=== PATIENT | female | born 1990 | race Caucasian/White ===

== ENCOUNTER → 2017-07-17 | Outpatient (REF) | payer OTHER ==
[2017-07-17 12:38] LABS: BASO % 1.2 % (0.0-1.0); EOS # 0.1 10^3/uL (0.0-0.50); EOS % 2.9 % (0.0-3.0); HEMATOCRIT 40.7 % (36.0-47.0); HEMOGLOBIN 13.6 g/dl (12.0-16.0); LYMPH # 1.2 10^3/uL (1.5-6.5); LYMPH % 35.4 % (24.0-44.0); MEAN CORPUSCULAR HEMOGLOBIN 27.6 pg (27.0-33.0); MEAN CORPUSCULAR HGB CONC 33.4 g/dl (32.0-36.5); MEAN CORPUSCULAR VOLUME 82.6 fl (80.0-96.0); MONO # 0.4 10^3/uL (0.0-0.8); MONO % 10.8 % (0.0-5.0); NEUTROPHILS # 1.7 10^3/uL (1.8-7.7); NEUTROPHILS % 49.7 % (36.0-66.0); PLATELET COUNT, AUTOMATED 229 10^3/uL (150-450); RED BLOOD COUNT 4.93 10^6/uL (4.00-5.40); RED CELL DISTRIBUTION WIDTH 13.2 % (11.5-14.5); WHITE BLOOD COUNT 3.4 10^3/uL (4.0-10.0)
[2017-07-17 13:00] LABS: ESTRADIOL 62.3 PG/ML; LUTEINIZING HORMONE 16.9 mIU/mL; PROLACTIN 12.6 NG/ML; TOTAL 25(OH) VITAMIN D 15.8 NG/ML (30.0-100.0)
[2017-07-17 13:01] LABS: FOLLICLE STIMULATING HORMONE 8.4 mIU/mL
[2017-07-17 13:10] LABS: ALBUMIN 4.3 GM/DL (3.2-5.2); ALBUMIN/GLOBULIN RATIO 1.26 (1.00-1.93); ALKALINE PHOSPHATASE 45 U/L (45-117); ALT/SGPT 12 U/L (12-78); ANION GAP 7 MEQ/L (8-16); AST/SGOT 15 U/L (7-37); BILIRUBIN,TOTAL 1.2 MG/DL (0.2-1.0); BLOOD UREA NITROGEN 11 MG/DL (7-18); CALCIUM LEVEL 8.9 MG/DL (8.5-10.1); CARBON DIOXIDE LEVEL 29 MEQ/L (21-32); CHLORIDE LEVEL 106 MEQ/L (98-107); GLOMERULAR FILTRATION RATE > 60.0 (>60); GLUCOSE, FASTING 89 MG/DL (70-100); POTASSIUM SERUM 4.4 MEQ/L (3.5-5.1); SODIUM LEVEL 142 MEQ/L (136-145); TOTAL PROTEIN 7.7 GM/DL (6.4-8.2)
== END ==
LOC: M SFHCPLAZ 08:40
DX: Z00.00 Encounter for general adult medical examination without abnormal findings (principal); N91.1 Secondary amenorrhea
CPT/HCPCS: 83001

== ENCOUNTER → 2017-08-20 | Outpatient (REF) | payer OTHER ==
[2017-08-20 14:45] LABS: CHLAMYDIA DNA AMPLIFICATION NEGATIVE (NEGATIVE); GC DNA AMPLIFICATION NEGATIVE (NEGATIVE)
== END ==
LOC: M SFHCPLAZ 12:34
DX: Z11.3 Encounter for screening for infections with a predominantly sexual mode of transmission (principal)

== ENCOUNTER → 2017-08-20 | Outpatient (REF) | payer OTHER | LOC: M SFHCWAGY 09:56 | DX: Z12.4 Encounter for screening for malignant neoplasm of cervix (principal) | CPT/HCPCS: 88142 ==

== ENCOUNTER → 2017-11-13 | Outpatient (REF) | payer OTHER ==
[2017-11-13 13:28] LABS: HEMATOCRIT 36.1 % (36.0-47.0); HEMOGLOBIN 12.6 g/dl (12.0-15.5); MEAN CORPUSCULAR HGB CONC 34.9 g/dl (32.0-36.5); PLATELET COUNT, AUTOMATED 189 10^3/uL (150-450); RED BLOOD COUNT 4.35 10^6/uL (4.00-5.40); RED CELL DISTRIBUTION WIDTH 13.5 % (11.5-14.5); WHITE BLOOD COUNT 6.9 10^3/uL (4.0-10.0)
[2017-11-13 14:34] LABS: HCG, SERUM QUANTITATIVE 76282 MIU/ML
[2017-11-14 11:22] LABS: RUBELLA IgG QUALITATIVE IMMUNE (IMMUNE)
[2017-11-14 11:41] LABS: HBsAg Prenatal NEGATIVE (NEGATIVE)
[2017-11-14 11:53] LABS: HEPATITIS C VIRUS ABY INDEX < 0.0 INDEX (<0.8)
[2017-11-14 11:53] LABS: HIV 1&2 SCREEN CENTAUR NEGATIVE (NEGATIVE)
== END ==
LOC: M LAB REF 13:12
DX: O36.80X0 Pregnancy with inconclusive fetal viability, not applicable or unspecified (principal); Z3A.00 Weeks of gestation of pregnancy not specified

== ENCOUNTER → 2018-02-26 | Outpatient (REF) | payer OTHER ==
[2018-02-26 15:48] LABS: CHLAMYDIA DNA AMPLIFICATION NEGATIVE (NEGATIVE); GC DNA AMPLIFICATION NEGATIVE (NEGATIVE)
== END ==
LOC: M LAB REF 13:37
DX: Z34.82 Encounter for supervision of other normal pregnancy, second trimester (principal)

== ENCOUNTER → 2018-03-27 | Outpatient (CLI) | payer OTHER ==
[2018-03-30 08:47] LABS: GLUCOSE CHALLENGE TEST 1 HOUR 147 MG/DL (LESS THAN 140)
== END ==
LOC: M LAB 11:49
DX: Z34.82 Encounter for supervision of other normal pregnancy, second trimester (principal); Z3A.00 Weeks of gestation of pregnancy not specified
CPT/HCPCS: 82950

== ENCOUNTER → 2018-04-03 | Outpatient (CLI) | payer OTHER ==
[2018-04-03 10:12] LABS: GLUCOSE, FASTING 79 MG/DL (LESS THAN 95)
[2018-04-03 10:41] LABS: 1 HR GLUCOSE 151 MG/DL (LESS THAN 180)
[2018-04-03 15:29] LABS: 3 HR GLUCOSE 141 MG/DL (LESS THAN 140)
[2018-04-03 16:32] LABS: 2 HR GLUCOSE 151 MG/DL (LESS THAN 155)
== END ==
LOC: M LAB 08:21
DX: R73.02 Impaired glucose tolerance (oral) (principal)
CPT/HCPCS: 82951

== ENCOUNTER → 2018-05-14 | Outpatient (REF) | payer OTHER | LOC: M LAB REF 13:51 | DX: Z34.83 Encounter for supervision of other normal pregnancy, third trimester (principal); Z36.85 Encounter for antenatal screening for Streptococcus B | CPT/HCPCS: 87081 ==

== ENCOUNTER 2018-05-25 18:13 | Outpatient (CLI) | payer OTHER ==
[~2018-05-25] VITALS: Ht 157.5 cm; Wt 67.1 kg
[2018-05-25 18:26] VITALS: BP 117/76
[2018-05-25 20:30] VITALS: BP 111/70
--- NOTE | 2018-05-25 21:04 | IPN ---
DATE: 05/25/2018 Rosanna is a 27-year-old 2, para 1-0-0-1 at 38-1/7 weeks gestation with an estimated date of confinement (EDC) of 06/07/2018, based on last menstrual period and confirmed by first trimester ultrasound. She presents to labor and delivery today with a report of onset of pelvic pressure and irregular contractions. She denies vaginal bleeding and leakage of fluid. The fetus has been active. care was initiated at [facility] in the second trimester. course has been uncomplicated. OBSTETRIC HISTORY: March 2013, 39 week gestation, spontaneous vaginal delivery, 7 pounds, 6 ounces female. OBSTETRIC LABORATORY: A+, antibody screen negative. Pap normal, rubella immune, VDRL nonreactive. Urine culture no growth. Hepatitis B surface antigen negative, human immunodeficiency virus (HIV) negative, hepatitis C nonreactive. Gonorrhea and chlamydia negative. Gestational diabetic screening elevated at 147 with a 3-hour glucose tolerance test with a 1-hour of 151, 2-hour 151, 3-hour 141. Group B streptococcus (GBS) is negative. PAST MEDICAL HISTORY: Negative. SURGERIES: The left toe surgery. FAMILY HISTORY: Diabetes type 2. SOCIAL HISTORY: The patient is single. She is unemployed. She denies smoking, alcohol use and drug use. She denies any history of sexually transmitted infections and denies history of abuse physical, sexual or emotional allergies. ALLERGIES: No known drug allergies. CURRENT MEDICATIONS: None. OBJECTIVE: Temperature 99.2, pulse 133, blood pressure (BP) 117/76. She is alert and oriented x3. She is in no apparent this distress, smiling and talkative, texting on her phone and talking on her phone. heart rate is 140 with moderate variability, positive accelerations, no decelerations. Contractions are mild every 4 to 6 minutes. Abdomen is gravid, cephalic presentation. Sterile vaginal exam: 1-2 cm, 50% effaced, scant bloody show with exam. She was rechecked approximately 70 minutes following the initial evaluation. Cervix was unchanged. heart rate is still category 1. ASSESSMENT: Intrauterine at 38-1/7 weeks. heart rate category 1, not in active labor. PLAN: Discharge the patient to home. I did review signs symptoms of active labor, kick counts and danger signs to report. I reviewed access to care. I did discuss with the patient that I am unable to augment any contraction pattern she is having as she is less than 39 weeks gestation. The patient understands. She will be discharged home and agrees with the plan.
== END 2018-05-25 20:40 | disposition home or self-care (01) ==
LOC: M LDO 18:13
PROVIDERS: ATTEND Advanced Practice Midwife
DX: O47.9 False labor, unspecified (principal); Z3A.38 38 weeks gestation of pregnancy

== ENCOUNTER 2018-05-30 14:10 | Outpatient (CLI) | payer OTHER | END 2018-05-30 16:35 | disposition home or self-care (01) | LOC: M LDO 14:10 | DX: O47.9 False labor, unspecified (principal); Z3A.38 38 weeks gestation of pregnancy ==

== ENCOUNTER 2018-06-05 12:28 | Inpatient (IN) | payer OTHER ==
[~2018-06-05] VITALS: Ht 157.5 cm; Wt 67.3 kg
[2018-06-05] VITALS (27 sets, daily range): BP systolic 95–140; BP diastolic 55–94
[2018-06-05] MEDS ORDERED: LR 1,000 ML IV SCH (12:45)
[2018-06-05] MEDS ORDERED: LACTATED RINGER'S 1000 ML IV ONE (12:45)
[2018-06-05 13:37] LABS: HEMATOCRIT 31.3 % (36.0-47.0); HEMOGLOBIN 10.3 g/dl (12.0-15.5); MEAN CORPUSCULAR HGB CONC 32.9 g/dl (32.0-36.5); PLATELET COUNT, AUTOMATED 233 10^3/uL (150-450); RED BLOOD COUNT 4.12 10^6/uL (4.00-5.40); WHITE BLOOD COUNT 8.6 10^3/uL (4.0-10.0)
[2018-06-05] MEDS ORDERED: OXYTOCIN 30 UNITS IN 0.9% NaCl 500ML IV BAG (J2590) As Ordered ONE (13:54)
[2018-06-05] MEDS ORDERED: FENTANYL 2MCG/ML ROPIVACAINE 0.2% IN 0.9% NACL 100ML IVBAG As Ordered ONE (14:07)
[2018-06-05] MEDS ORDERED: OXYTOCIN DRIP 30 UNITS in APPROPRIATE DILUENT 1 EA IV SCH ×2 (14:15→18:47)
[2018-06-05] MEDS ORDERED: FENTANYL/ROPIVACAINE/NACL BAG 100 ML EPIDURAL SCH (16:00)
[2018-06-05] MEDS ORDERED: diphenhydrAMINE INJ 50MG/ML VIAL (J1200) IV PRN (16:00)
[2018-06-05] MEDS ORDERED: EPIDURAL COMMENT XX SCH (16:00)
[2018-06-05] MEDS ORDERED: REFRIGERATOR IV KEYS XX PRN (16:00)
[2018-06-05] MEDS ORDERED: ePHEDrine SULFATE 25 MG/5 ML(5MG/ML) SYRINGE IV PRN (16:00)
[2018-06-05] MEDS ORDERED: EPIDURAL/PCA KEYS XX PRN (16:00)
[2018-06-05] MEDS ORDERED: ONDANSETRON 4MG/2ML VIAL (J2405) IV PRN (16:00)
[2018-06-05] MEDS ORDERED: NALOXONE INJ 0.4 MG/1 ML VIAL (J2310) IV PRN (16:00)
[2018-06-05] MEDS ORDERED: RHOGAM 300 MCG (1500 IU) INJ (J2790) IM SCH (19:00)
[2018-06-05] MEDS ORDERED: DIBUCAINE 1% OINTMENT 30GM TOP PRN (19:00)
[2018-06-05] MEDS ORDERED: MEASLES,MUMPS,RUBELLA VACCINE INJ (MMR-II) (90707) SC SCH (19:00)
[2018-06-05] MEDS ORDERED: METHYLERGONOVINE MALEATE 0.2 MG TAB PO PRN (19:00)
[2018-06-05] MEDS ORDERED: DOCUSATE SODIUM 100 MG CAP PO PRN (19:00)
[2018-06-05] MEDS ORDERED: IBUPROFEN 800 MG TAB PO PRN (19:00)
[2018-06-05] MEDS ORDERED: ACETAMINOPHEN 500 MG TAB PO PRN (19:00)
[2018-06-05 19:10] LABS: CORD GAS ABE A -5.3; CORD GAS HCO3 A 23.6 MEQ/L; CORD GAS O2 SAT A 21.5 %; CORD GAS PCO2 A 59.8 mmHg; CORD GAS PH A 7.214 UNITS; CORD GAS PO2 A 16.1 mmHg; CORD GAS SBC A 18.4 MEQ/L; CORD GAS TCO2 A 25.4 MEQ/L
[2018-06-05 19:13] LABS: CORD GAS HCO3 V 21.3 MEQ/L; CORD GAS O2 SAT V 42.7 %; CORD GAS PH V 7.264 UNITS; CORD GAS PO2 V 22.6 mmHg; CORD GAS SBC V 18.4 MEQ/L; CORD GAS TCO2 V 22.7 MEQ/L
[2018-06-06 06:03] VITALS: BP 100/53
[2018-06-06] MEDS ORDERED: PRENATAL VITAMINS CHEWABLE TABLET PO SCH (09:00)
--- NOTE | 2018-06-06 10:46 | HPE ---
DATE OF ADMISSION: 06/05/2018 Rosanna is a 27-year-old female 2, para 1-0-0-1 with an EDC of 06/07/2018, EGA 39-5/7 weeks gestation who presented to the office with complaints of contractions. Upon evaluation she was found to be in labor. At this point a decision was made for admission. Her record reviewed which was essentially unremarkable. lab blood type is A positive, rubella immune, hepatitis negative, HIV negative, GC and chlamydia negative. Her Group B streptococcus (GBS) is negative. 1-hour sugar testing was abnormal, her 3 hours was within normal limits. PAST MEDICAL HISTORY: Unremarkable. PAST SURGICAL HISTORY: Left toe surgery. SOCIAL HISTORY: She denies any alcohol, drugs or cigarette smoking. REVIEW OF SYSTEMS: Unremarkable. FAMILY HISTORY: Significant for type 2 diet diabetes. MEDICATIONS: vitamins. ALLERGIES: No known drug allergies. PHYSICAL EXAMINATION: Normal-appearing female in no acute distress. Abdomen: Soft, nontender, nondistended. Extremities: No clubbing, cyanosis or edema. Vaginal exam: 3-4 cm 80%, fetus at -2 station in vertex position. Tracing reviewed, category one tracing, contractions every 3-4 minutes. ASSESSMENT: Intrauterine at 39+ weeks gestation in active labor. PLAN: Admit to labor and delivery. Routine labs sent. Pain management discussed. The patient opted for an epidural. We will continue to monitor. Anticipate delivery.
--- NOTE | 2018-06-06 12:52 | DN ---
DATE OF DELIVERY: 06/05/2018 Rosanna is a 27-year-old female 2, para 1-0-0-1 who was admitted at 39-5/7 weeks gestation in labor. She progressed to fully dilated after artificial rupture of membranes and Pitocin augmentation, delivered a live male infant in right occiput anterior position with a tight nuchal cord. scores of 8 and 9. weight 7 pounds 6 ounces. Placenta delivered spontaneously intact. Three-vessel cord. Perineum, vagina, and cervix inspected. No laceration noted. Estimated blood loss 200 mL. Both mother and baby in stable condition.
[2018-06-06] MEDS ORDERED: MAPA500T17 PO (15:58)
[2018-06-06] MEDS ORDERED: IBUP-1114 PO (15:59)
[2018-06-06] MEDS ORDERED: INFLUENZA QUADRIVALENT PF VACCINE 0.5ML SYRINGE (90686) IM ONE (16:00)
[2018-06-06] MEDS ORDERED: PRENTAB9 PO (16:00)
[2018-06-06 18:01] VITALS: BP 118/81
== END 2018-06-06 19:37 | disposition home or self-care (01) | DRG 560 ==
LOC: M LDI 12:28 → M OBS 21:15
PROVIDERS: ADMIT Obstetrics & Gynecology; ATTEND Obstetrics & Gynecology
PROC: 10E0XZZ Delivery of Products of Conception, External Approach (ICD-10-PCS; principal; 2018-06-05)
PROC: 10907ZC Drainage of Amniotic Fluid, Therapeutic from Products of Conception, Via Natural or Artificial Opening (ICD-10-PCS; 2018-06-05)
DX: O80 Encounter for full-term uncomplicated delivery (principal); Z37.0 Single live birth; Z3A.39 39 weeks gestation of pregnancy

== ENCOUNTER 2018-07-03 10:28 | Emergency (ER) | payer OTHER ==
[~2018-07-03] VITALS: Ht 157.5 cm; Wt 60.0 kg
[~2018-07-03 10:28] MED LIST: IBUP-1114 PO; MAPA500T2 PO; PRENTAB9 PO
[2018-07-03 11:07] LABS: BASO % 0.9 % (0.0-1.0); EOS # 0.2 10^3/uL (0.0-0.50); EOS % 3.8 % (0.0-3.0); HEMATOCRIT 39.2 % (36.0-47.0); HEMOGLOBIN 12.1 g/dl (12.0-15.5); MEAN CORPUSCULAR HEMOGLOBIN 23.9 pg (27.0-33.0); MEAN CORPUSCULAR HGB CONC 30.9 g/dl (32.0-36.5); MEAN CORPUSCULAR VOLUME 77.5 fl (80.0-96.0); MONO # 0.5 10^3/uL (0.0-0.8); MONO % 9.8 % (0.0-5.0); NEUTROPHILS % 63.3 % (36.0-66.0); PLATELET COUNT, AUTOMATED 229 10^3/uL (150-450); RED BLOOD COUNT 5.06 10^6/uL (4.00-5.40); WHITE BLOOD COUNT 4.7 10^3/uL (4.0-10.0)
[2018-07-03 11:17] LABS: INR 1.02; PROTHROMBIN TIME 13.5 SECONDS (12.1-14.4)
[2018-07-03 11:18] LABS: PARTIAL THROMBOPLASTIN TIME 26.2 SECONDS (25.4-37.6)
[2018-07-03 11:29] LABS: BLOOD UREA NITROGEN 10 MG/DL (7-18); CARBON DIOXIDE LEVEL 26 MEQ/L (21-32); CHLORIDE LEVEL 108 MEQ/L (98-107); CREATININE FOR GFR 0.72 MG/DL (0.55-1.30); GLOMERULAR FILTRATION RATE > 60.0 (>60); GLUCOSE, FASTING 101 MG/DL (70-100); POTASSIUM SERUM 3.7 MEQ/L (3.5-5.1); SODIUM LEVEL 141 MEQ/L (136-145)
[2018-07-03 11:48] LABS: HCG, SERUM QUANTITATIVE < 1.0 MIU/ML
[2018-07-03 12:54] VITALS: BP 107/71
== END 2018-07-03 12:57 | disposition home or self-care (01) ==
LOC: M ED 10:28
DX: N93.8 Other specified abnormal uterine and vaginal bleeding (principal)

== ENCOUNTER 2018-07-14 17:51 | Emergency (ER) | payer OTHER ==
[~2018-07-14] VITALS: Ht 157.5 cm; Wt 59.1 kg
[2018-07-14 17:52] VITALS: BP 113/72
[2018-07-14] MEDS ORDERED: AFRI0.0511 (19:49)
[2018-07-14] MEDS ORDERED: BENZ200C70 PO (19:49)
[2018-07-14] MEDS ORDERED: MUCI600T37 PO (19:49)
== END 2018-07-14 19:55 | disposition home or self-care (01) ==
LOC: M ED 17:51
DX: J06.9 Acute upper respiratory infection, unspecified (principal)

== ENCOUNTER 2018-12-05 08:39 | Emergency (ER) | payer OTHER ==
[~2018-12-05] VITALS: Ht 157.5 cm; Wt 61.4 kg
[~2018-12-05 08:39] MED LIST changes: +AFRI0.0511; +BENZ200C70 PO; +MUCI600T37 PO
[2018-12-05] MEDS ORDERED: NS 1,000 ML IV ONE (09:15)
[2018-12-05 09:35] LABS: BASO % 0.4 % (0.0-1.0); EOS % 0.4 % (0.0-3.0); HEMATOCRIT 37.5 % (36.0-47.0); LYMPH # 0.7 10^3/uL (1.5-6.5); LYMPH % 9.3 % (24.0-44.0); MEAN CORPUSCULAR HEMOGLOBIN 25.3 pg (27.0-33.0); MEAN CORPUSCULAR VOLUME 78.9 fl (80.0-96.0); MONO # 0.7 10^3/uL (0.0-0.8); MONO % 9.3 % (0.0-5.0); NEUTROPHILS # 5.9 10^3/uL (1.8-7.7); NEUTROPHILS % 80.3 % (36.0-66.0); PLATELET COUNT, AUTOMATED 237 10^3/uL (150-450); RED BLOOD COUNT 4.75 10^6/uL (4.00-5.40); WHITE BLOOD COUNT 7.4 10^3/uL (4.0-10.0)
[2018-12-05 10:06] LABS: ALBUMIN 3.8 GM/DL (3.2-5.2); ALT/SGPT 17 U/L (12-78); BILIRUBIN,DIRECT 0.3 MG/DL (0.0-0.2); BILIRUBIN,TOTAL 1.4 MG/DL (0.2-1.0); BLOOD UREA NITROGEN 8 MG/DL (7-18); CALCIUM LEVEL 8.6 MG/DL (8.5-10.1); CARBON DIOXIDE LEVEL 25 MEQ/L (21-32); CHLORIDE LEVEL 108 MEQ/L (98-107); CREATININE FOR GFR 0.76 MG/DL (0.55-1.30); GLOMERULAR FILTRATION RATE > 60.0 (>60); GLUCOSE, FASTING 98 MG/DL (70-100); LIPASE 62 U/L (73-393); POTASSIUM SERUM 3.6 MEQ/L (3.5-5.1); SODIUM LEVEL 140 MEQ/L (136-145); TOTAL PROTEIN 7.4 GM/DL (6.4-8.2)
[2018-12-05] MEDS ORDERED: CIPR-249 PO (10:58)
[2018-12-05] MEDS ORDERED: cefTRIAXone SOD 1 GM in D5W MINI-BAG PLUS 50 ML IV ONE (11:00)
[2018-12-05 11:37] VITALS: BP 129/77
--- NOTE | 2018-12-05 15:02 | REP ---
Clinical: Right flank pain. Technique: Axial noncontrast images from the lung bases to the pubic symphysis with coronal and sagittal re-formations. Findings: There is mild edematous enlargement to the right kidney with a subtle periureteral stranding and mild ureteral prominence without obvious nephrolithiasis or obstructing ureteral calculus. Calcifications in the pelvis likely represent phleboliths although subtle distal ureteral calculus cannot definitively be excluded. Correlation with urinalysis is recommended along with ultrasound if necessary. The left kidney/ureter appears normal. The bladder is unremarkable. Liver, spleen, pancreas, gallbladder, and bilateral adrenal glands are normal for noncontrast evaluation. The enteric system is without obstruction or acute inflammatory process. A normal appendix is identified in the right lower quadrant. Pelvis demonstrates normal bladder and uterus with IUD in satisfactory position along with bilateral adnexal cysts likely physiologic and related to menstrual cycle. No pelvic fluid or ascites. No free air. No obvious adenopathy. Abdominal aorta without aneurysm. Musculoskeletal structures without focal osseous abnormality. Impression: 1. Mild edematous enlargement to the right kidney with subtle periureteral stranding, but no obvious intrarenal or obstructing ureteral calculi appreciated. Correlation with urinalysis and ultrasound may be warranted to exclude pyelonephritis to evaluate for ureteral jet. Left kidney/ureter and bladder appear normal. 2. Normal appendix. 3. No further acute abdominopelvic pathology appreciated. No ascites. No focal inflammatory stranding. No adenopathy. Electronically Signed by Shant Millard MD 12/05/2018 10:05 A
== END 2018-12-05 11:41 | disposition home or self-care (01) ==
LOC: M ED 08:39
DX: N10 Acute pyelonephritis (principal); R11.2 Nausea with vomiting, unspecified; E80.7 Disorder of bilirubin metabolism, unspecified; Z97.5 Presence of (intrauterine) contraceptive device
CPT/HCPCS: 74176; 80048; 80076; 81001; 83690; 84702; 85025; 87088; 87186; 96365; 99284; J0696

== ENCOUNTER → 2018-12-09 | Outpatient (REF) | payer OTHER ==
[~2018-12-09] MED LIST changes: +CIPR-249 PO
[2018-12-09 14:03] LABS: HEMATOCRIT 35.1 % (36.0-47.0); HEMOGLOBIN 11.2 g/dl (12.0-15.5); MEAN CORPUSCULAR HEMOGLOBIN 25.5 pg (27.0-33.0); MEAN CORPUSCULAR HGB CONC 31.9 g/dl (32.0-36.5); MEAN CORPUSCULAR VOLUME 79.8 fl (80.0-96.0); PLATELET COUNT, AUTOMATED 268 10^3/uL (150-450); WHITE BLOOD COUNT 3.2 10^3/uL (4.0-10.0)
[2018-12-09 14:12] LABS: FREE T4 1.14 NG/DL (0.76-1.46); THYROID STIMULATING HORMONE 1.33 uIU/ML (0.358-3.740)
[2018-12-09 14:14] LABS: FOLLICLE STIMULATING HORMONE 5.9 mIU/mL; LUTEINIZING HORMONE 12.4 mIU/mL
== END ==
LOC: M LAB REF 12:45
PROVIDERS: ATTEND Obstetrics & Gynecology
DX: N92.1 Excessive and frequent menstruation with irregular cycle (principal)

== ENCOUNTER → 2019-05-25 | Outpatient (CLI) | payer OTHER ==
--- NOTE | 2019-05-25 17:14 | REP ---
Four views left foot: 05/25/2019. Indication: New left foot pain. Comparison: None. Findings: There is no acute fracture, subluxation or dislocation. No focal soft tissue abnormalities are detected. There are no lytic or blastic lesions within the visualized osseous structures. Impression: No acute left foot osseous injury. Electronically Signed by Estuardo Zapata DO 05/25/2019 05:05 P
== END ==
LOC: M RAD 16:36
PROVIDERS: ATTEND Nurse Practitioner Family
DX: M79.672 Pain in left foot (principal)

== ENCOUNTER → 2019-07-23 | Outpatient (CLI) | payer OTHER ==
--- NOTE | 2019-07-23 09:46 | REP ---
MRI left foot without contrast: History: Pain in the left foot. Evaluate first MTP joint. Surgery 2 years ago. Salomon in the left foot 2015. Comparison radiographs May 25, 2019. Technique: Axial, coronal, and sagittal imaging planes were utilized. T1 and T2-weighted scans were included with and without fat saturation. Findings: I do not see evidence of any metallic hardware in place. Cortical and medullary bone signal intensity is normal at the ankle and foot. The patient is status post bunion repair at the first MTP joint. There is a small spur at the medial aspect of the base of the proximal phalanx of the great toe and a tiny spur is seen at the lateral articular margin of the distal end of the first metatarsal consistent with early osteoarthritis. There is mild swelling in the medial collateral ligament at the MTP joint. Sesamoid bones are unremarkable. No tendinopathy is appreciated. No juxtaarticular fluid or interarticular fluid is seen. No mass lesion is observed. Plantar fascia is smooth. There is no evidence to suggest tarsal coalition. Achilles tendon is unremarkable. No other evidence of tendinopathy is appreciated. Impression: Mild osteoarthritic changes at the first MTP joint. Status post bunion repair. Otherwise negative. Electronically Signed by Miguel Fagan MD 07/23/2019 12:03 P
== END ==
LOC: M PLARAD 07:24
PROVIDERS: ATTEND Orthopaedic Surgery
DX: M79.672 Pain in left foot (principal); M19.072 Primary osteoarthritis, left ankle and foot

== ENCOUNTER → 2019-10-20 | Outpatient (REF) | payer OTHER ==
[2019-10-20 16:17] LABS: HEMOGLOBIN A1c 5.7 %
== END ==
LOC: M SFHCPLAZ 13:20
PROVIDERS: ATTEND Family Medicine
DX: Z13.1 Encounter for screening for diabetes mellitus (principal)

== ENCOUNTER → 2019-11-29 | Outpatient (CLI) | payer OTHER ==
[~2019-11-29] MED LIST changes: +ACET-897 PO; +DEPO150I IM; +MOTR200T44 PO; +NEUR100C PO
== END ==
LOC: M LABSMTC 11:31
PROVIDERS: ATTEND Anesthesiology
DX: Z03.818 Encounter for observation for suspected exposure to other biological agents ruled out (principal); Z11.59 Encounter for screening for other viral diseases
CPT/HCPCS: C9803; U0003

== ENCOUNTER 2019-12-02 14:45 | Day surgery (SDC) | payer OTHER ==
[~2019-12-02] VITALS: Ht 157.5 cm; Wt 78.4 kg
[~2019-12-02 14:45] MED LIST changes: +ACETAMINOPHEN 1000MG 100ML IV BTL (OFIRMEV) (J0131 PER 10MG) As Ordered ONE; +LIDOCAINE 2% 100MG/5ML SDV (FOR ANES.) As Ordered ONE; +LR 1,000 ML IV ONE; +MIDAZOLAM INJ 2MG/2ML VIAL (J2250 PER 1MG) As Ordered ONE; +ONDANSETRON 4MG/2ML VIAL As Ordered ONE; +PHENYLephrine HCL 500 MCG/5 ML (100MCG/ML) SYRINGE (J2370) As Ordered ONE; +ROCURONIUM BROMIDE 50 MG/5 ML VIAL As Ordered ONE; +SUGAMMADEX SODIUM 500 MG/5 ML VIAL (BRIDION) As Ordered ONE; +ceFAZolin SOD 2 GM in IV 1 EA IV ONE; +dexameTHASONE 4 MG/ML 1ML VIAL (J1100 PER 1MG) As Ordered ONE; +ePHEDrine SULFATE 25 MG/5 ML(5MG/ML) SYRINGE As Ordered ONE; +fentaNYL 250 MCG/5 ML INJECTION (J3010) As Ordered ONE; +propofoL 200 MG/20 ML VIAL As Ordered ONE
[2019-12-02] MEDS ORDERED: BUPIVACAINE HCL 0.5% 30 ML VIAL As Ordered ONE (16:59)
[2019-12-02] MEDS: PERCOCET 5MG/325MG TAB PO PRN ×2 (18:12→18:59)
[2019-12-02] MEDS: fentaNYL 100 MCG/2 ML INJECTION (J3010) IV PRN ×4 (18:12→18:34)
[2019-12-02] MEDS ORDERED: fentaNYL 100 MCG/2 ML INJECTION (J3010) As Ordered ONE (18:12)
[2019-12-02] MEDS ORDERED: PERCOCET 5MG/325MG TAB As Ordered ONE (18:12)
[2019-12-02] MEDS ORDERED: MEPERIDINE INJ 25 MG/ML VIAL (J2175) IV PRN (18:15)
[2019-12-02] MEDS ORDERED: LR 1,000 ML IV SCH ×2 (18:15)
[2019-12-02] MEDS ORDERED: METOCLOPRAMIDE INJ 10MG/2ML VIAL (J2765 PER 1) IV PRN (18:15)
[2019-12-02] MEDS ORDERED: ONDANSETRON 4MG/2ML VIAL IV PRN (18:15)
[2019-12-02 19:20] VITALS: BP 125/97
--- NOTE | 2019-12-07 22:27 | RO ---
DATE OF PROCEDURE: 12/02/2019 PREOPERATIVE DIAGNOSIS: 1. Left knee possible medial meniscus tear. POSTOPERATIVE DIAGNOSIS: 1. Left knee nondisplaced versus interstitial medial meniscus tear. 2. Left knee medial synovial plica. PROCEDURE: 1. Left knee arthroscopy with trephination of medial meniscus. 2. Left knee arthroscopic synovectomy, resection of medial synovial plica. SURGEON: Dr. Van Smith SPRAY GUNNER: BRAEDEN Clay ANESTHESIA: General. IV FLUIDS: Lactated Ringer's. ESTIMATED BLOOD LOSS: 1 mL. IMPLANTS: None. CLOSURE: Nylon. DESCRIPTION OF PROCEDURE: The patient was identified in the preoperative holding area. The left leg was marked by myself. She was brought to the operating room, placed supine on a well-padded operating room (OR) table. General anesthesia induced. Exam under anesthesia revealed range of motion from 0 to 140 degrees, stable to varus and valgus stress, grade 1A Keke, grade 1 posterior drawer. A well-padded tourniquet was applied to the left side. The left leg was then prepped and draped in a normal sterile fashion from the toes up to the tourniquet. She received appropriate IV antibiotics within 1 hour of incision. Time-out was performed per hospital protocol. The left leg was exsanguinated with an Esmarch bandage, the tourniquet inflated to 275 mmHg. The knee was insufflated with lactated Ringer's. A standard anterolateral portal made with 11-blade. 30-degree arthroscope introduced into the joint, and a diagnostic arthroscopy was carried out. There was no chondromalacia in the patellofemoral joint. No loose bodies. There was a large medial synovial plica. Medial compartment was entered where there were no loose bodies, and there was no significant chondromalacia. No obvious medial meniscus tears. The anterior cruciate ligament (ACL) appeared intact and unremarkable. The leg was brought to the figure-four position where there were no loose bodies in the lateral compartment. The lateral meniscus was intact and no chondromalacia. A medial portal was created under direct visualization, and the shaver was used to resect the medial synovial plica. On probing the medial meniscus, the root and posterior horn were stable. The undersurface of the medial meniscus at the body had what appeared to be either a healed undersurface tear or an interstitial tear. There is nothing unstable there. There was nothing to resect, but there was hyperemia in a linear fashion in the undersurface. That corresponded to the area of pathology on an MRI and area of maximal tenderness on exam. At this point, I felt that a medial meniscus repair was excessive and inappropriate. However, this was a good opportunity for a trephination of her medial meniscus to increase the blood flow. I, therefore, used an 18-gauge spinal needle and percutaneously trephinated the inferior leaflet of the body of medial meniscus four times. The meniscus was reprobed and deemed to be stable. The knee was irrigated and drained. Portals were closed with nylon suture. We then injected 30 mL of 0.50% Marcaine without epinephrine at the portals and into the joint. Tourniquet was let down with excellent reperfusion. Again, portals were closed with nylon suture. Bulky sterile dressing applied. All counts times two. Complications: None. She was then extubated and transferred to the post-anesthesia care unit (PACU) in stable condition.
== END 2019-12-02 19:50 | disposition home or self-care (01) ==
LOC: M SDC 14:45
PROVIDERS: ATTEND Orthopaedic Surgery
DX: S83.242A Other tear of medial meniscus, current injury, left knee, initial encounter (principal); X58.XXXA Exposure to other specified factors, initial encounter; M67.52 Plica syndrome, left knee; Y92.89 Other specified places as the place of occurrence of the external cause; Y93.9 Activity, unspecified; Y99.9 Unspecified external cause status; Z79.899 Other long term (current) drug therapy
CPT/HCPCS: 29876; 29999; 81025; J0131; J0690; J1100; J2250; J2370; J2405; J3010

== ENCOUNTER → 2020-03-19 | Outpatient (CLI) | payer OTHER ==
[~2020-03-19] MED LIST changes: -ACETAMINOPHEN 1000MG 100ML IV BTL (OFIRMEV) (J0131 PER 10MG) As Ordered ONE; -LIDOCAINE 2% 100MG/5ML SDV (FOR ANES.) As Ordered ONE; -LR 1,000 ML IV ONE; -MIDAZOLAM INJ 2MG/2ML VIAL (J2250 PER 1MG) As Ordered ONE; -ONDANSETRON 4MG/2ML VIAL As Ordered ONE; -PHENYLephrine HCL 500 MCG/5 ML (100MCG/ML) SYRINGE (J2370) As Ordered ONE; -ROCURONIUM BROMIDE 50 MG/5 ML VIAL As Ordered ONE; -SUGAMMADEX SODIUM 500 MG/5 ML VIAL (BRIDION) As Ordered ONE; -ceFAZolin SOD 2 GM in IV 1 EA IV ONE; -dexameTHASONE 4 MG/ML 1ML VIAL (J1100 PER 1MG) As Ordered ONE; -ePHEDrine SULFATE 25 MG/5 ML(5MG/ML) SYRINGE As Ordered ONE; -fentaNYL 250 MCG/5 ML INJECTION (J3010) As Ordered ONE; -propofoL 200 MG/20 ML VIAL As Ordered ONE
== END ==
LOC: M LABSMTC 08:02
PROVIDERS: ATTEND Anesthesiology
DX: Z01.812 Encounter for preprocedural laboratory examination (principal); Z20.828 Contact with and (suspected) exposure to other viral communicable diseases
CPT/HCPCS: C9803; U0003

== ENCOUNTER 2020-03-24 06:22 | Day surgery (SDC) | payer OTHER ==
[~2020-03-24] VITALS: Ht 157.5 cm; Wt 78.5 kg
[2020-03-24] MEDS ORDERED: LR 1,000 ML IV ONE (07:00)
[2020-03-24] MEDS ORDERED: ACETAMINOPHEN *IV* 1,000 MG IV ONE ×2 (07:00)
[2020-03-24 07:05] LABS: HEMATOCRIT 41.4 % (36.0-47.0); HEMOGLOBIN 13.5 g/dl (12.0-15.5); MEAN CORPUSCULAR HEMOGLOBIN 30.5 pg (27.0-33.0); MEAN CORPUSCULAR HGB CONC 32.6 g/dl (32.0-36.5); MEAN CORPUSCULAR VOLUME 93.7 fl (80.0-96.0); PLATELET COUNT, AUTOMATED 184 10^3/uL (150-450); RED BLOOD COUNT 4.42 10^6/uL (4.00-5.40); WHITE BLOOD COUNT 2.7 10^3/uL (4.0-10.0)
[2020-03-24] MEDS ORDERED: propofoL 200 MG/20 ML VIAL As Ordered ONE (07:15)
[2020-03-24] MEDS ORDERED: LIDOCAINE 2% 100MG/5ML SDV (FOR ANES.) As Ordered ONE (07:15)
[2020-03-24] MEDS ORDERED: MIDAZOLAM INJ 2MG/2ML VIAL (J2250 PER 1MG) As Ordered ONE (07:15)
[2020-03-24] MEDS ORDERED: ROCURONIUM BROMIDE 50 MG/5 ML VIAL As Ordered ONE (07:15)
[2020-03-24] MEDS ORDERED: fentaNYL 100 MCG/2 ML INJECTION (J3010) As Ordered ONE ×3 (07:16→09:03)
[2020-03-24] MEDS ORDERED: ONDANSETRON 4MG/2ML VIAL As Ordered ONE (07:16)
[2020-03-24] MEDS ORDERED: dexameTHASONE 4 MG/ML 1ML VIAL (J1100 PER 1MG) As Ordered ONE (07:16)
[2020-03-24] MEDS ORDERED: METOCLOPRAMIDE INJ 10MG/2ML VIAL (J2765 PER 1) As Ordered ONE (07:16)
[2020-03-24] MEDS ORDERED: BUPIVACAINE/EPIN 0.5% 30 ML VIAL As Ordered ONE (07:38)
[2020-03-24] MEDS ORDERED: ACETAMINOPHEN 1000MG 100ML IV BTL (OFIRMEV) (J0131 PER 10MG) As Ordered ONE (08:13)
[2020-03-24] MEDS ORDERED: SUGAMMADEX SODIUM 500 MG/5 ML VIAL (BRIDION) As Ordered ONE (08:14)
[2020-03-24] MEDS ORDERED: KETOROLAC 60MG 2ML VIAL As Ordered ONE (08:14)
[2020-03-24] MEDS: fentaNYL 100 MCG/2 ML INJECTION (J3010) IV PRN ×4 (09:04→09:22)
[2020-03-24] MEDS ORDERED: ONDANSETRON 4MG/2ML VIAL IV PRN ×2 (09:15→10:15)
[2020-03-24] MEDS ORDERED: METOCLOPRAMIDE INJ 10MG/2ML VIAL (J2765 PER 1) IV PRN ×2 (09:15→10:15)
[2020-03-24] MEDS ORDERED: LR 1,000 ML IV SCH ×2 (09:15→10:15)
[2020-03-24] MEDS ORDERED: PERCOCET 5MG/325MG TAB PO PRN ×2 (09:15)
[2020-03-24] MEDS ORDERED: fentaNYL 100 MCG/2 ML INJECTION (J3010) IV PRN (10:15)
[2020-03-24] MEDS ORDERED: oxyCODONE 5MG TAB PO PRN (10:15)
[2020-03-24 10:35] VITALS: BP 136/77
[2020-03-24] MEDS ORDERED: IBUPROFEN 800 MG TAB PO SCH (14:00)
--- NOTE | 2020-03-24 15:59 | RO ---
DATE OF OPERATION: 03/24/2020 Rosanna is a 29-year-old female, multiparous, who desires permanent tubal sterilization. After consulting, a decision was made for bilateral salpingectomy. PREOPERATIVE DIAGNOSIS: Multiparity. Desires permanent tubal sterilization. POSTOPERATIVE DIAGNOSIS: Multiparity. Desires permanent tubal sterilization. PROCEDURE: Laparoscopic bilateral salpingectomies. ANESTHESIA: General. SURGEON: Dr. Aubrey Kunz COMPLICATIONS: None. ESTIMATED BLOOD LOSS: Less than 10 mL. FINDINGS: Normal tubes, ovaries, and uterus. PROCEDURE DESCRIPTION: After obtaining informed consent, patient was taken to the operating room, where general an esthetic was found to be adequate. She was then draped and prepped in the usual sterile fashion in the dorsal lithotomy position. At this point, a straight catheterization of bladder was performed for approximately 100 mL of clear urine. We then placed a weighed speculum in the posterior fornix of the vagina. Using a Ruiz retractor, and anterior lip of the cervix was then grasped with single-tooth tenaculum. A uterine manipulator was placed. Attention was then turned to the abdomen, where a 5 mm infraumbilical incision was made. Using the Veress needle, the abdomen was insufflated with CO2 gas to approximately 3.5 liters. We then placed an 8 mm right lateral port under direct visualization. Patient was placed in steep Trendelenburg. The pelvis inspected with the above-noted findings. At this point, using an Sree harmonic scalpel, the entire fallopian tube as well as the fimbriated end was removed on each side. Those were sent to pathology for final diagnosis. Good hemostasis noted. Pelvis copiously irrigated with normal saline and suctioned out. Attention turned to the abdomen, where all the laparoscopic trocars were removed, and the sites were closed using 4-0 Vicryl in a subcuticular fashion. Marcaine 0.25% was placed for postoperative pain. Patient tolerated the procedure well. She was then transferred to the recovery room in stable condition. ISHMAEL
== END 2020-03-24 10:52 | disposition home or self-care (01) ==
LOC: M SDC 06:22
PROVIDERS: ATTEND Obstetrics & Gynecology
DX: Z30.2 Encounter for sterilization (principal)
CPT/HCPCS: 36415; 58661; 81025; 85027; 86850; 86900; 86901; 88302; J0131; J1100; J1885; J2250; J2405; J2765; J3010

== ENCOUNTER → 2020-10-30 | Outpatient (REF) | payer OTHER | LOC: M SFHCPLAZ 16:40 | PROVIDERS: ATTEND Physician Assistant | DX: J02.9 Acute pharyngitis, unspecified (principal) ==

== ENCOUNTER → 2021-02-23 | Outpatient (CLI) | payer OTHER ==
[~2021-02-23] MED LIST changes: +PROHANCE 279.3MG/ML 15ML VIAL ONE
--- NOTE | 2021-02-23 10:51 | REP ---
INDICATION: PAIN IN LT KNEE. COMPARISON: None. TECHNIQUE: Multiple sequences obtained in the axial, coronal and sagittal planes prior to and following the intravenous administration of 12 cc ProHance. FINDINGS: Menisci: Intact, no tear. Cruciate ligaments: Intact. Collateral ligaments: Intact. Extensor mechanism/patellar retinacula: Intact. Cartilage: Smooth, no osteochondral defect. There is mild diffuse chondromalacia of the femoral condyles. Bone marrow: Normal signal, no edema or occult fracture. Joint fluid: There is a very small joint effusion. Popliteal region: No cyst. There is no abnormal osseous or soft tissue enhancement. IMPRESSION: No evidence of internal derangement. 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 Very small joint effusion. <Electronically signed by Shayan Ellis > 02/23/21 [id number]
== END ==
LOC: M PLAIMG 07:46
PROVIDERS: ATTEND Physician Assistant
DX: M25.562 Pain in left knee (principal); M25.462 Effusion, left knee; M94.262 Chondromalacia, left knee

== ENCOUNTER → 2022-03-06 | Outpatient (REF) | payer OTHER ==
[~2022-03-06] MED LIST changes: -PROHANCE 279.3MG/ML 15ML VIAL ONE
== END ==
LOC: M SFHCPLAZ 16:49
PROVIDERS: ATTEND Physician Assistant
DX: J02.9 Acute pharyngitis, unspecified (principal)

== ENCOUNTER → 2022-10-03 | Outpatient (CLI) | payer OTHER ==
[2022-10-03 17:46] LABS: BASO % 0.8 % (0.0-1.0); EOS # 0.1 10^3/uL (0.0-0.5); EOS % 0.9 % (0.0-3.0); HEMATOCRIT 37.4 % (36.0-47.0); HEMOGLOBIN 12.6 g/dl (12.0-15.5); LYMPH # 1.5 10^3/uL (1.5-5.0); LYMPH % 28.3 % (24.0-44.0); MEAN CORPUSCULAR HEMOGLOBIN 29.6 pg (27.0-33.0); MEAN CORPUSCULAR HGB CONC 33.7 g/dl (32.0-36.5); MEAN CORPUSCULAR VOLUME 87.8 fl (80.0-96.0); MONO # 0.5 10^3/uL (0.0-0.8); MONO % 9.3 % (2.0-8.0); NEUTROPHILS # 3.2 10^3/uL (1.5-8.5); NEUTROPHILS % 60.5 % (36.0-66.0); PLATELET COUNT, AUTOMATED 257 10^3/uL (150-450); RED BLOOD COUNT 4.26 10^6/uL (4.00-5.40); WHITE BLOOD COUNT 5.3 10^3/uL (4.0-10.0)
[2022-10-03 18:17] LABS: ALKALINE PHOSPHATASE 56 U/L (46-116); ALT/SGPT < 9 U/L (7.0-40); AST/SGOT 10 U/L (<34); BILIRUBIN,TOTAL 1.4 MG/DL (0.3-1.2); BLOOD UREA NITROGEN 8 MG/DL (9-23); CALCIUM LEVEL 8.6 MG/DL (8.5-10.1); CARBON DIOXIDE LEVEL 28 MMOL/L (20-31); CHLORIDE LEVEL 103 MMOL/L (98-107); CHOLESTEROL LEVEL 149 MG/DL (<200); CHOLESTEROL RISK RATIO 2.12 (<5); CREATININE FOR GFR 0.62 MG/DL (0.55-1.30); GLOMERULAR FILTRATION RATE > 60.0 (>60); GLUCOSE, FASTING 90 MG/DL (60-100); HDL CHOLESTEROL 70.1 MG/DL (>40); LDL CHOLESTEROL 67.1 MG/DL (<100); NON-HDL-C 78.9 MG/DL; POTASSIUM SERUM 3.7 MMOL/L (3.5-5.1); SODIUM LEVEL 139 MMOL/L (136-145); TOTAL PROTEIN 6.9 G/DL (5.7-8.2); TRIGLYCERIDES LEVEL 59 MG/DL (<150)
[2022-10-03 18:19] LABS: THYROID STIMULATING HORMONE 0.799 uIU/ML (0.55-4.78)
== END ==
LOC: M PLALAB 15:21
PROVIDERS: ATTEND Physician Assistant
DX: Z00.00 Encounter for general adult medical examination without abnormal findings (principal); Z13.220 Encounter for screening for lipoid disorders

== ENCOUNTER → 2022-10-24 | Outpatient (CLI) | payer OTHER ==
[2022-10-24 14:20] LABS: BASO % 0.6 % (0.0-1.0); EOS # 0.1 10^3/uL (0.0-0.5); EOS % 2.5 % (0.0-3.0); HEMATOCRIT 41.6 % (36.0-47.0); HEMOGLOBIN 13.9 g/dl (12.0-15.5); LYMPH # 1.1 10^3/uL (1.5-5.0); LYMPH % 29.3 % (24.0-44.0); MEAN CORPUSCULAR HGB CONC 33.4 g/dl (32.0-36.5); MEAN CORPUSCULAR VOLUME 89.7 fl (80.0-96.0); MONO # 0.5 10^3/uL (0.0-0.8); MONO % 14.5 % (2.0-8.0); NEUTROPHILS # 1.9 10^3/uL (1.5-8.5); NEUTROPHILS % 52.8 % (36.0-66.0); PLATELET COUNT, AUTOMATED 226 10^3/uL (150-450); RED BLOOD COUNT 4.64 10^6/uL (4.00-5.40); WHITE BLOOD COUNT 3.6 10^3/uL (4.0-10.0)
[2022-10-24 14:22] LABS: C REACTIVE PROTEIN QUANTITATIV < 0.40 MG/DL (<1.0)
[2022-10-24 14:23] LABS: RHEUMATOID FACTOR QUANT 6.7 IU/ML (<14)
[2022-10-24 15:21] LABS: ERYTHROCYTE SEDIMENTATION RATE 9 mm/hr (0-20)
[2022-10-25 13:09] LABS: ANTINUCLEAR ANTIBODIES DIRECT Negative (Negative)
== END ==
LOC: M PLALAB 10:11
PROVIDERS: ATTEND Orthopaedic Surgery
DX: M25.562 Pain in left knee (principal)

== ENCOUNTER → 2023-02-06 | Outpatient (REF) | payer OTHER | LOC: M SFHCPLAZ 16:55 | PROVIDERS: ATTEND Physician Assistant | DX: R39.9 Unspecified symptoms and signs involving the genitourinary system (principal) ==

== ENCOUNTER → 2024-04-12 | Outpatient (REF) | payer OTHER | LOC: M LAB REF 16:41 | PROVIDERS: ATTEND Physician Assistant Medical | DX: J02.9 Acute pharyngitis, unspecified (principal) ==

== ENCOUNTER 2024-05-04 23:57 | Emergency (ER) | payer OTHER ==
[~2024-05-04] VITALS: Ht 160 cm; Wt 56.8 kg
[2024-05-05 00:11] VITALS: BP 147/89; TEMP 97.6; O2SAT 97
[2024-05-05 00:48] LABS: HEMATOCRIT 41.4 % (36.0-47.0); HEMOGLOBIN 14.4 g/dl (12.0-15.5); MEAN CORPUSCULAR HEMOGLOBIN 29.4 pg (27.0-33.0); MEAN CORPUSCULAR HGB CONC 34.8 g/dl (32.0-36.5); MEAN CORPUSCULAR VOLUME 84.7 fl (80.0-96.0); PLATELET COUNT, AUTOMATED 243 10^3/uL (150-450); RED BLOOD COUNT 4.89 10^6/uL (4.00-5.40); WHITE BLOOD COUNT 5.1 10^3/uL (4.0-10.0)
[2024-05-05 01:02] LABS: AMPHETAMINES LEVEL URINE NEGATIVE (NEGATIVE); BARBITURATES URINE NEGATIVE (NEGATIVE); CANNABINOIDS URINE NEGATIVE (NEGATIVE); COCAINE METABOLITE URINE NEGATIVE (NEGATIVE); METHADONE URINE NEGATIVE (NEGATIVE); OPIATES URINE NEGATIVE (NEGATIVE); PHENCYCLIDINE URINE NEGATIVE (NEGATIVE)
[2024-05-05 01:17] LABS: HCG, SERUM QUALITATIVE NEGATIVE (NEGATIVE)
[2024-05-05 01:23] LABS: ETHYL ALCOHOL (ETHANOL) 0.248 % (0.000-0.010)
[2024-05-05 01:25] LABS: ALKALINE PHOSPHATASE 46 U/L (35-104); ALT/SGPT 10 U/L (7.0-40); AST/SGOT 11 U/L (<34); BILIRUBIN,DIRECT 0.2 MG/DL (<0.4); BILIRUBIN,TOTAL 0.6 MG/DL (0.3-1.2); BLOOD UREA NITROGEN 9 MG/DL (9-23); CALCIUM LEVEL 9.1 MG/DL (8.5-10.1); CARBON DIOXIDE LEVEL 23 MMOL/L (20-31); CHLORIDE LEVEL 112 MMOL/L (98-107); CREATININE FOR GFR 0.54 MG/DL (0.55-1.30); GLOMERULAR FILTRATION RATE > 60.0 (>60); GLUCOSE, FASTING 106 MG/DL (60-100); POTASSIUM SERUM 3.5 MMOL/L (3.5-5.1); SALICYLATE LEVEL < 3.0 MG/DL (<30); SODIUM LEVEL 144 MMOL/L (136-145); TOTAL PROTEIN 7.6 G/DL (5.7-8.2)
[2024-05-05 01:27] LABS: THYROID STIMULATING HORMONE 2.136 uIU/ML (0.55-4.78)
[2024-05-05 03:11] LABS: BENZODIAZEPINES URINE NEGATIVE (NEGATIVE)
== END 2024-05-05 09:50 | disposition home or self-care (01) ==
LOC: M ED 23:57
DX: F32.A Depression, unspecified (principal); F10.129 Alcohol abuse with intoxication, unspecified; Z79.899 Other long term (current) drug therapy

== ENCOUNTER 2024-07-31 23:07 | Emergency (ER) | payer MEDICAID, OTHER ==
[~2024-07-31] VITALS: Ht 162.6 cm; Wt 59.4 kg
[2024-07-31] MEDS: ONDANSETRON 4MG 2ML VIAL IV ONE (23:23)
[2024-07-31] MEDS: NS (Normal Saline) 0.9% 1,000 ML IV ONE (23:29)
[2024-07-31 23:45] LABS: VENOUS BASE EXCESS -2.9 (-2.0-2.0); VENOUS HCO3 21.9 MMOL/L (23.0-27.0); VENOUS PARTIAL PRESSURE CO2 38.7 mmHg (38.0-50.0); VENOUS PH 7.371 UNITS (7.330-7.430); VENOUS STANDARD HCO3 22.1 MMOL/L; VENOUS TOTAL CO2 23.1 MMOL/L (24.0-28.0)
[2024-07-31 23:51] LABS: EOS # 0.1 10^3/uL (0.0-0.5); EOS % 2.6 % (0.0-3.0); HEMATOCRIT 38.1 % (36.0-47.0); HEMOGLOBIN 12.8 g/dl (12.0-15.5); LYMPH # 1.3 10^3/uL (1.5-5.0); LYMPH % 42.3 % (24.0-44.0); MEAN CORPUSCULAR HGB CONC 33.6 g/dl (32.0-36.5); MEAN CORPUSCULAR VOLUME 89.2 fl (80.0-96.0); MONO # 0.3 10^3/uL (0.0-0.8); MONO % 9.4 % (2.0-8.0); NEUTROPHILS # 1.4 10^3/uL (1.5-8.5); NEUTROPHILS % 44.7 % (36.0-66.0); PLATELET COUNT, AUTOMATED 202 10^3/uL (150-450); RED BLOOD COUNT 4.27 10^6/uL (4.00-5.40); WHITE BLOOD COUNT 3.1 10^3/uL (4.0-10.0)
[2024-07-31 23:57] LABS: VENOUS O2 SATURATION 99.4 % (60.0-80.0)
[2024-08-01 00:07] LABS: ETHYL ALCOHOL (ETHANOL) 0.162 % (0.000-0.010)
[2024-08-01 00:09] LABS: ALBUMIN 3.6 G/DL (3.2-5.2); ALKALINE PHOSPHATASE 45 U/L (35-104); ALT/SGPT < 9 U/L (7.0-40); AST/SGOT 10 U/L (<34); BILIRUBIN,DIRECT 0.1 MG/DL (<0.4); BILIRUBIN,TOTAL 0.4 MG/DL (0.3-1.2); BLOOD UREA NITROGEN 10 MG/DL (9-23); CALCIUM LEVEL 8.1 MG/DL (8.5-10.1); CARBON DIOXIDE LEVEL 24 MMOL/L (20-31); CHLORIDE LEVEL 109 MMOL/L (98-107); CPK CREATINE PHOSPHOKINASE 81 U/L (34-145); GLOMERULAR FILTRATION RATE > 60.0 (>60); GLUCOSE, FASTING 167 MG/DL (60-100); POTASSIUM SERUM 3.3 MMOL/L (3.5-5.1); SALICYLATE LEVEL < 3.0 MG/DL (<30); SODIUM LEVEL 145 MMOL/L (136-145); TOTAL PROTEIN 6.8 G/DL (5.7-8.2)
[2024-08-01 00:11] LABS: THYROID STIMULATING HORMONE 0.604 uIU/ML (0.55-4.78)
[2024-08-01] MEDS: NS (Normal Saline) 0.9% 1,000 ML IV ONE ×2 (06:30→07:32)
[2024-08-01] MEDS: OVERDOSE RESCUE KIT XX SCH (09:27)
[2024-08-01 09:45] LABS: AMPHETAMINES LEVEL URINE NEGATIVE (NEGATIVE); BARBITURATES URINE NEGATIVE (NEGATIVE); BENZODIAZEPINES URINE NEGATIVE (NEGATIVE); COCAINE METABOLITE URINE NEGATIVE (NEGATIVE); METHADONE URINE NEGATIVE (NEGATIVE); OPIATES URINE NEGATIVE (NEGATIVE); PHENCYCLIDINE URINE NEGATIVE (NEGATIVE)
[2024-08-01 09:48] LABS: CANNABINOIDS URINE POSITIVE (NEGATIVE)
[2024-08-01 10:15] VITALS: BP 122/80; TEMP 99.3; O2SAT 99
== END 2024-08-01 10:24 | disposition home or self-care (01) ==
LOC: M ED 23:07
DX: F10.129 Alcohol abuse with intoxication, unspecified (principal); R00.0 Tachycardia, unspecified; F19.10 Other psychoactive substance abuse, uncomplicated; Z79.899 Other long term (current) drug therapy
CPT/HCPCS: 36415; 70450; 71045; 80048; 80076; 80143; 80307; 82077; 82550; 82803; 83605; 84443; 85025; 93005; 93041; 94760; 96360; 96361; 96375; 99285; J2405

== ENCOUNTER 2024-12-25 16:33 | Emergency (ER) | payer OTHER ==
[~2024-12-25] VITALS: Ht 157.5 cm; Wt 54.3 kg
[2024-12-25 16:35] VITALS: BP 126/82; TEMP 97.7; O2SAT 97
[2024-12-25 17:40] LABS: PLATELET COUNT, AUTOMATED 297 10^3/uL (150-450)
[2024-12-25] MEDS ORDERED: HOME MED LIST COMPLETE! XX SCH (17:40)
[2024-12-25 18:06] LABS: AMPHETAMINES LEVEL URINE NEGATIVE (NEGATIVE); BARBITURATES URINE NEGATIVE (NEGATIVE); BENZODIAZEPINES URINE NEGATIVE (NEGATIVE); COCAINE METABOLITE URINE NEGATIVE (NEGATIVE); METHADONE URINE NEGATIVE (NEGATIVE); OPIATES URINE NEGATIVE (NEGATIVE); PHENCYCLIDINE URINE NEGATIVE (NEGATIVE)
[2024-12-25 18:07] LABS: CANNABINOIDS URINE NEGATIVE (NEGATIVE)
[2024-12-25 18:09] LABS: ETHYL ALCOHOL (ETHANOL) 0.228 % (0.000-0.010)
[2024-12-25 18:10] LABS: ALT/SGPT 10 U/L (7.0-40); AST/SGOT 19 U/L (<34); CALCIUM LEVEL 9.6 MG/DL (8.5-10.1); CARBON DIOXIDE LEVEL 22 MMOL/L (20-31); CHLORIDE LEVEL 102 MMOL/L (98-107); CREATININE FOR GFR 0.77 MG/DL (0.55-1.30); GLOMERULAR FILTRATION RATE > 90.0 (>60); POTASSIUM SERUM 3.6 MMOL/L (3.5-5.1); SODIUM LEVEL 141 MMOL/L (136-145)
[2024-12-25 18:11] LABS: SALICYLATE LEVEL < 3.0 MG/DL (<30)
[2024-12-25 18:19] LABS: HCG, SERUM QUALITATIVE NEGATIVE (NEGATIVE)
== END 2024-12-26 00:40 | disposition home or self-care (01) ==
LOC: M ED 16:33
DX: F10.920 Alcohol use, unspecified with intoxication, uncomplicated (principal); F10.10 Alcohol abuse, uncomplicated

== ENCOUNTER 2025-01-12 02:20 | Emergency (ER) | payer OTHER ==
[~2025-01-12] VITALS: Ht 157.5 cm; Wt 54.1 kg
[2025-01-12 02:59] LABS: PLATELET COUNT, AUTOMATED 259 10^3/uL (150-450)
[2025-01-12 03:16] LABS: AMPHETAMINES LEVEL URINE NEGATIVE (NEGATIVE); BARBITURATES URINE NEGATIVE (NEGATIVE); BENZODIAZEPINES URINE NEGATIVE (NEGATIVE); ETHYL ALCOHOL (ETHANOL) 0.120 % (0.000-0.010); METHADONE URINE NEGATIVE (NEGATIVE)
[2025-01-12 03:17] LABS: ALT/SGPT < 9 U/L (7.0-40); AST/SGOT 19 U/L (<34); CALCIUM LEVEL 8.9 MG/DL (8.5-10.1); CANNABINOIDS URINE NEGATIVE (NEGATIVE); CARBON DIOXIDE LEVEL 26 MMOL/L (20-31); CHLORIDE LEVEL 107 MMOL/L (98-107); CREATININE FOR GFR 0.59 MG/DL (0.55-1.30); GLOMERULAR FILTRATION RATE > 90.0 (>60); OPIATES URINE NEGATIVE (NEGATIVE); PHENCYCLIDINE URINE NEGATIVE (NEGATIVE); POTASSIUM SERUM 3.4 MMOL/L (3.5-5.1); SALICYLATE LEVEL < 3.0 MG/DL (<30); SODIUM LEVEL 144 MMOL/L (136-145)
[2025-01-12 03:22] LABS: HCG, SERUM QUALITATIVE NEGATIVE (NEGATIVE)
[2025-01-12 03:51] LABS: COCAINE METABOLITE URINE POSITIVE (NEGATIVE)
[2025-01-12] MEDS ORDERED: HYDR-3363 PO (06:00)
[2025-01-12 06:30] VITALS: BP 121/85; TEMP 97.8; O2SAT 97
== END 2025-01-12 06:30 | disposition home or self-care (01) ==
LOC: M ED 02:20
DX: F31.9 Bipolar disorder, unspecified (principal); F10.10 Alcohol abuse, uncomplicated; Z79.899 Other long term (current) drug therapy; F43.0 Acute stress reaction; M05.9 Rheumatoid arthritis with rheumatoid factor, unspecified; F14.10 Cocaine abuse, uncomplicated

== ENCOUNTER 2025-01-12 14:22 | Emergency (ER) | payer OTHER ==
[~2025-01-12 14:22] MED LIST changes: +HYDR-3363 PO
[2025-01-12 15:19] LABS: PLATELET COUNT, AUTOMATED 272 10^3/uL (150-450)
[2025-01-12 15:42] LABS: AMPHETAMINES LEVEL URINE NEGATIVE (NEGATIVE); BARBITURATES URINE NEGATIVE (NEGATIVE)
[2025-01-12 15:43] LABS: BENZODIAZEPINES URINE NEGATIVE (NEGATIVE); CANNABINOIDS URINE NEGATIVE (NEGATIVE); METHADONE URINE NEGATIVE (NEGATIVE); OPIATES URINE NEGATIVE (NEGATIVE); PHENCYCLIDINE URINE NEGATIVE (NEGATIVE)
[2025-01-12 15:44] LABS: ETHYL ALCOHOL (ETHANOL) 0.003 % (0.000-0.010)
[2025-01-12 15:46] LABS: ALT/SGPT 9 U/L (7.0-40); AST/SGOT 21 U/L (<34); CALCIUM LEVEL 9.1 MG/DL (8.5-10.1); CARBON DIOXIDE LEVEL 26 MMOL/L (20-31); CHLORIDE LEVEL 104 MMOL/L (98-107); CREATININE FOR GFR 0.79 MG/DL (0.55-1.30); GLOMERULAR FILTRATION RATE > 90.0 (>60); POTASSIUM SERUM 3.6 MMOL/L (3.5-5.1); SALICYLATE LEVEL < 3.0 MG/DL (<30); SODIUM LEVEL 142 MMOL/L (136-145)
[2025-01-12 15:52] LABS: COCAINE METABOLITE URINE POSITIVE (NEGATIVE)
[2025-01-12 17:26] VITALS: BP 108/80; TEMP 97.4; O2SAT 99
== END 2025-01-12 17:30 | disposition home or self-care (01) ==
LOC: M ED 14:22
DX: F43.0 Acute stress reaction (principal); F31.9 Bipolar disorder, unspecified; M05.9 Rheumatoid arthritis with rheumatoid factor, unspecified; F14.10 Cocaine abuse, uncomplicated